=== PATIENT | male | born 1960 | race African-American/Black ===

== ENCOUNTER 2025-06-29 15:27 | Emergency (ER) | payer SELFPAY ==
[2025-06-29 15:28] VITALS: BP 135/89
[2025-06-29 15:30] VITALS: BP 135/89
[2025-06-29 15:38] VITALS: BMI 31.4
[2025-06-29 16:00] VITALS: BP 132/88
[2025-06-29 16:07] LABS: Hematocrit 45.9 % (39.0-52.0); Hemoglobin 14.9 g/dL (13.0-18.0); Mean Corp Hgb Conc. 32.5 g/dL (33.0-37.0); Mean Corpuscular Volume 85.6 fL (80.0-94.0); Nucleated Red Blood Cells % 0 % (-); Platelet Count 263 10^3/uL (130-400); Red Cell Dist. Width 13.8 % (11.5-14.5)
--- NOTE | 2025-06-29 16:09 | ED.GENMED ---
History of Present Illness
<Cameron Grayson MD, Resident - Last Filed: 06/29/25 18:32>
General
Chief Complaint: Abnormal Lab Value
Source: patient
Time Seen by Provider: 06/29/25 15:36
History of Present Illness
History of Present Illness:
Patient is a 64-year-old male who presents to the emergency department from the [facility] after an unusual EKG reading. He was in his normal state of health when this unusual EKG finding was obtained. The patient has no complaints at the present time and
does not believe that he has anything wrong with him presently. I called over to [facility] for further information and they stated that he was sent to the ED after his physial eval had an abnormal EKG during their intake
to the facility he was denied based on these findings and sent to [facility]'s ED. He denies shortness of breath, dizziness, or syncope. He denies palpitations, slow heart rate, or fatigue. He denies feeling fatigued or syncope when rising from a
seated to standing position. He can eat and drink normally and has no nausea, vomiting, or diarrhea. He is unsure why he is here and is curious as to why people think that he may be unwell.
Past History
<Cameron Grayson MD, Resident - Last Filed: 06/29/25 18:32>
Past History
ED Past Medical History: HTN
ED Past Surgical History: Other ( Herniotomy)
Patient has exhibited threatening behavior?: No
Social History
Tobacco: Former smoker ( smoked for 10 years)
Alcohol: None
Drug: None
Personal:
Living: with family
Family History
Family History: Other ( his mother had pericardial effusion)
Review of Systems
<Cameron Grayson MD, Resident - Last Filed: 06/29/25 18:32>
Review of Systems
Constitutional: Reports no symptoms
EENT: Reports no symptoms
Respiratory: Reports no symptoms
Cardiac: Reports no symptoms
ABD/GI: Reports no symptoms
: Reports no symptoms
Musculoskeletal: Reports no symptoms
Skin: Reports no symptoms
Neurological: Reports no symptoms
Endocrine: Reports no symptoms
Hematologic/Lymphatic: Reports no symptoms
Psychiatric: Reports no symptoms
Phy Exam
<Cameron Grayson MD, Resident - Last Filed: 06/29/25 18:32>
General Physical Exam
General Presentation: well appearing and no apparent distress
General age: appears stated age
General Skin: warm and dry
General Habitus: normal and obese
General Mental: alert
General Hydration: appears well hydrated
Cardiovascular Exam
Cardiovascular Exam: no edema, no gallop, no JVD, no murmur, normal peripheral pulses and bradycardia
Pulmonary Exam
Pulmonary Exam: lungs clear, no respiratory distress, no rales, chest non tender, no crackles, no rhonchi, no stridor, no wheezing and no cough
Psychiatric Exam
Psychiatric Exam: normal mood/affect
Course
<Cameron Grayson MD, Resident - Last Filed: 06/29/25 18:32>
Orders/Labs/Results
Orders:
Orders
06/29/25 15:28
Electrocardiogram (*1) Urgent
Reason for Study: Hypertension, Benign
EKG- Treatment ONCE
06/29/25 15:40
Basic Metabolic Panel Urgent
Complete Blood Count/With Diff Urgent
TSH Reflex To Free T4 Urgent
Comment: ADD ON
06/29/25 16:21
Troponin I Urgent
06/29/25 16:43
Add On- LAB Urgent
Tests Added?: TSH w/ reflex to T4
06/29/25 18:31
Discharge Patient As Directed
Abnormal Lab Results
06/29/25
15:40
MCHC 32.5 L g/dL
(33.0-37.0)
Absolute Lymphs (auto) 3.7 H 10^3/uL
(1.2-3.4)
Absolute Monos (auto) 0.8 H 10^3/uL
(0.1-0.6)
BUN 25 H mg/dl
(9-20)
Creatinine 1.5 H mg/dL
(0.7-1.3)
06/29/25 15:40
06/29/25 15:40
Vital Signs
Initial and Last Documented VS:
Initial Vital Signs
Temp Pulse Resp BP Pulse Ox
98.1 F 58 18 135/89 97
06/29/25 15:28 06/29/25 15:28 06/29/25 15:28 06/29/25 15:28 06/29/25 15:28
Last Documented Vital Signs
Temp Pulse Resp BP Pulse Ox
98.1 F 54 20 141/94 97
06/29/25 15:28 06/29/25 17:30 06/29/25 17:30 06/29/25 17:00 06/29/25 16:10
<Bijan Rojo MD - Last Filed: 06/29/25 18:25>
Orders/Labs/Results
Orders:
Orders
06/29/25 15:28
Electrocardiogram (*1) Urgent
Reason for Study: Hypertension, Benign
EKG- Treatment ONCE
06/29/25 15:40
Basic Metabolic Panel Urgent
Complete Blood Count/With Diff Urgent
TSH Reflex To Free T4 Urgent
Comment: ADD ON
06/29/25 16:21
Troponin I Urgent
06/29/25 16:43
Add On- LAB Urgent
Tests Added?: TSH w/ reflex to T4
06/29/25 18:31
Discharge Patient As Directed
Abnormal Lab Results
06/29/25
15:40
MCHC 32.5 L g/dL
(33.0-37.0)
Absolute Lymphs (auto) 3.7 H 10^3/uL
(1.2-3.4)
Absolute Monos (auto) 0.8 H 10^3/uL
(0.1-0.6)
BUN 25 H mg/dl
(9-20)
Creatinine 1.5 H mg/dL
(0.7-1.3)
06/29/25 15:40
06/29/25 15:40
Vital Signs
Initial and Last Documented VS:
Initial Vital Signs
Temp Pulse Resp BP Pulse Ox
98.1 F 58 18 135/89 97
06/29/25 15:28 06/29/25 15:28 06/29/25 15:28 06/29/25 15:28 06/29/25 15:28
Last Documented Vital Signs
Temp Pulse Resp BP Pulse Ox
98.1 F 54 20 141/94 97
06/29/25 15:28 06/29/25 17:30 06/29/25 17:30 06/29/25 17:00 06/29/25 16:10
<Cameron Grayson MD, Resident - Last Filed: 06/29/25 18:32>
*Pulse Oximetry
SaO2: 97
Oxygen Mode of Delivery: Room air
Patient hypoxic: no
*Critical Care Note
Total Time (30-74mins, 75-104mins- exclusive of procedures): 60
<Cameron Grayson MD, Resident - Last Filed: 06/29/25 18:32>
Update Note
Update Note:
Problem List:
Asymptomatic bradycardia
abnormal EKG in outpatient setting
Plan:
CBC and CMP
EKG
magnesium level
TSH with reflex to T4
troponins
Differential Diagnoses:
previous MO
physiologic sinus bradycardia
hypothyroidism
sick sinus syndrome
first-degree/Mobitz 1 AV block
severe hyperkalemia
Radiology: not applicable
EKG:
unusual P axis, possible ectopic atrial bradycardia
minimal voltage criteria for LVH
septal infarct, age undetermined
T wave abnormality�consider lateral ischemia
abnormal EKG
Labs:
Updates:
patient presents with no signs or symptoms of acute coronary syndrome
CBC unremarkable
BMP has BUN of 25 and a creatinine of 1.5 with an eGFR of 51.67 - patient will require outpatient trending in order to determine/rule out CKD status
EKG taken shows an unusual P axis with possible ectopic atrial bradycardia. There is minimal voltage criteria for LVH and likely septal infarct with undetermined age. There was a T wave abnormality along the lateral leads suggesting lateral
ischemia. Based on these findings the patient should be followed with cardiology in the outpatient setting.
first troponin is 0.031
Two-dimensional and M-mode echocardiogram with Doppler and color Doppler showed normal sinus rhythm with mild concentric left ventricular hypertrophy with an ejection fraction of 50 to 55%.
Based on these findings the patient is currently medically stable but should follow-up with cardiology in the outpatient setting. Patient has been lined up for referral and follow-up with cardiology on discharge.
Patient would like to be discharged. There are no barriers that would impede the patient for being safely discharged at the present time.
Patient should follow-up with his primary care provider within 1 week after discharge and patient should follow-up with cardiology.
ED Attending Note
<Cameron Grayson MD, Resident - Last Filed: 06/29/25 18:32>
-
Portions of this chart may have been created with voice recognition software.� Occasional wrong word or��sound alike� substitutions may have occurred due to the inherent limitations of voice recognition software.
<Bijan Rojo MD - Last Filed: 06/29/25 18:25>
ED Attending Note
Patient seen and examined by attending physician: Yes
I performed a history and physical exam of patient and discussed management with resident, I reviewed resident's note and agree with documented findings and plan of care.: Yes
ED Attending Note:
I have seen and evaluated the patient with a [id number] encounter. I have spoken to the resident and involved in the medical history, the physical exam, medical decision making.
Evaluation and management service: agree unless noted differently below.
Results interpretation: agree unless noted differently below.
Focused HPI: 64-year-old male with history of hypertension hyperlipidemia presents to the ER from [facility] for evaluation of an abnormal EKG. Patient reports 'I do need to know I was coming to the hospital.' He says that
he has no complaints and that physically he has been feeling well 'I always feel fine.' He specifically denies any chest pain. He denies any issues with exertion or limitation in his activities. He denies any shortness of breath. He denies any
nausea, vomiting, diaphoresis. He denies any swelling or pain in his legs. When asked about any history of heart issues he says that he thinks he 'might have' had a minor heart attack a few months ago and was seen at [facility]. He
denies any history of stents or any other cardiac procedures.
Physical exam: Awake and alert not in any distress. Vital signs here are all within normal limits. He has no cardiac rubs gallops or murmurs. Lungs clear to auscultation bilaterally. He has no JVD. No edema in the legs. Good pulses throughout.
Medical Decision Makin-year-old male presents to the ER for evaluation of abnormal EKG detected on routine screening at [facility] today. He has no acute complaints. He has no signs or symptoms to suggest acute MO.
His EKG today is abnormal with lateral T wave inversions. No priors available for comparison. Routine screening labs sent off including a CBC which was unremarkable, CMP which showed creatinine of 1.5 without prior baseline comparison available.
Will send a troponin for completeness although he has nothing to suggest that he has an acute coronary syndrome at this point in time. He will ultimately need cardiology follow-up for his abnormal EKG. Will try to obtain records from [facility]
for prior comparisons.
Troponin negative here. He has no symptoms of an acute coronary syndrome, no indication for repeat troponin. Patient remains asymptomatic. I was able to obtain the old EKG from [facility] in February 2025 similar with the same
lateral T wave abnormalities seen today. He also had an echocardiogram at that time showed EF of 50 to 55%, normal LV size. At this point patient can be discharged back to detention. Advised detention pharmacy as well as patient that he will need
outpatient cardiology referral. All questions answered.
Discharge Plan
Departure
Patient Disposition: Home (Routine Discharge)
Date of Disposition: 06/29/25
Time of Disposition: 18:25
Patient with high blood pressure during this ER visit?: No
Discharge Problem:
Abnormal EKG
Instructions: ECG and stress test
Prescriptions:
No Action
aspirin [Adult Low Dose Aspirin] 81 mg Tablet
81 mg PO QDAY
atorvastatin 40 mg Tablet
40 mg PO HS
amlodipine 10 mg Tablet
10 mg PO DAILY
hydralazine 50 mg Tablet
50 mg PO TID
Referrals:
Arcelia Brooks MD [Active, Cardiology] - Call in 1-3 days for appt
Referral Note: Cardiology follow up regarding abnormal EKG and high blood pressure.
Activity Restrictions/Additional Instructions:
Thank you for visiting the Emergency Department at [facility].
1. Please schedule a follow up appointment as directed. Call first thing tomorrow morning to make an appointment.
2. If indicated, please take your medications as instructed and indicated on discharge paperwork.
3. If any of your symptoms do not improve, or persist, or become more severe within 6-12 hours, please return to the emergency department for further care.
4. Please return to the emergency department if you develop a headache, neck pain/stiffness, fever greater than 100.4F, chest pain, shortness of breath, persistent nausea, vomiting, slurred speech, difficulty walking, numbness/tingling, weakness,
signs of infection or any other symptoms that are worrisome to you.
Please call [phone] if you have any questions.
Interventions
Interventions:
*Risk Screen - Suicide Last Done: 06/29/25 15:31
*General Assessment Last Done: 06/29/25 15:31
*Neglect/Abuse Screening Last Done: 06/29/25 15:31
*ED- Fall Risk Assessment Last Done: 06/29/25 15:31
*ED COVID-19 Vaccine History Last Done: 06/29/25 15:31
*Nursing Disposition Last Done: 06/29/25 18:30
Discharge Date and Time
Discharge Date/Time: 06/29/25 18:31
Print Language: SINHALA
[2025-06-29 16:26] LABS: Blood Urea Nitrogen 25 mg/dl (9-20); Calcium 9.5 mg/dl (8.4-10.2); Carbon Dioxide 26 mmol/L (22-30); Chloride 104 mmol/L (98-107); Estimated Creatinine Clearance 62 ml/min; Glucose 78 mg/dl (70-99); Sodium 137 mmol/L (135-145); eGFR 51.67
[2025-06-29 16:55] LABS: Troponin I 0.031 ng/ml
[2025-06-29 17:00] VITALS: BP 141/94
--- NOTE | 2025-06-29 23:29 | ED.GENMED ---
History of Present Illness
General
Chief Complaint: Abnormal Lab Value
Time Seen by Provider: 06/29/25 15:36
Past History
Past History
ED Past Medical History: HTN
ED Past Surgical History: Other ( Herniotomy)
Patient has exhibited threatening behavior?: No
Social History
Tobacco: Former smoker ( smoked for 10 years)
Alcohol: None
Drug: None
Personal:
Living: with family
Family History
Family History: Other ( his mother had pericardial effusion)
Course
Orders/Labs/Results
Orders:
Orders
06/29/25 15:28
Electrocardiogram (*1) Urgent
Reason for Study: Hypertension, Benign
EKG- Treatment ONCE
06/29/25 15:40
Basic Metabolic Panel Urgent
Complete Blood Count/With Diff Urgent
TSH Reflex To Free T4 Urgent
Comment: ADD ON
06/29/25 16:21
Troponin I Urgent
06/29/25 16:43
Add On- LAB Urgent
Tests Added?: TSH w/ reflex to T4
06/29/25 18:31
Discharge Patient As Directed
Abnormal Lab Results
06/29/25
15:40
MCHC 32.5 L g/dL
(33.0-37.0)
Absolute Lymphs (auto) 3.7 H 10^3/uL
(1.2-3.4)
Absolute Monos (auto) 0.8 H 10^3/uL
(0.1-0.6)
BUN 25 H mg/dl
(9-20)
Creatinine 1.5 H mg/dL
(0.7-1.3)
06/29/25 15:40
06/29/25 15:40
Vital Signs
Initial and Last Documented VS:
Initial Vital Signs
Temp Pulse Resp BP Pulse Ox
98.1 F 58 18 135/89 97
06/29/25 15:28 06/29/25 15:28 06/29/25 15:28 06/29/25 15:28 06/29/25 15:28
Last Documented Vital Signs
Temp Pulse Resp BP Pulse Ox
98.1 F 54 20 141/94 97
06/29/25 15:28 06/29/25 17:30 06/29/25 17:30 06/29/25 17:00 06/29/25 16:10
*Pulse Oximetry
SaO2: 97
Oxygen Mode of Delivery: Room air
Update Note
Update Note:
Problem List:
Bradycardia
left ventricular hypertrophy
prior myocardial infarct
Plan:
EKG
CBC
BMP
TSH with reflex to free T4
troponin
Differential Diagnoses:
prior myocardial infarct
hyperkalemia
Radiology: not applicable
EKG:
unusual P axis, possible ectopic atrial bradycardia
minimal voltage criteria for left ventricular hypertrophy
septal infarct age undetermined
T wave abnormality, consider lateral ischemia
abnormal ECG with no previous ECGs to compare to.
Labs:
EKG cited above
CBC unremarkable
BMP with a creatinine of 1.5 and an eGFR of 51.67
TSH within normal limit
troponins within normal limit
Updates:
based on presentation, EKG, and lab findings this patient likely has a older myocardial infarction that has been detected on EKG. Patient is hemodynamically stable and presents without any signs or symptoms of Acute coronary syndrome. Patient
is appropriate to be followed up in the outpatient setting.
patient should follow-up with Dr. Brooks from cardiology after discharge.
patient would like to be discharged. Patient is appropriate for discharge at the present time.
ED Attending Note
-
Portions of this chart may have been created with voice recognition software.� Occasional wrong word or��sound alike� substitutions may have occurred due to the inherent limitations of voice recognition software.
Discharge Plan
Departure
Patient Disposition: Home (Routine Discharge)
Date of Disposition: 06/29/25
Time of Disposition: 18:25
Patient with high blood pressure during this ER visit?: No
Discharge Problem:
Abnormal EKG
Instructions: ECG and stress test
Prescriptions:
No Action
aspirin [Adult Low Dose Aspirin] 81 mg Tablet
81 mg PO QDAY
atorvastatin 40 mg Tablet
40 mg PO HS
amlodipine 10 mg Tablet
10 mg PO DAILY
hydralazine 50 mg Tablet
50 mg PO TID
Referrals:
Arcelia Brooks MD [Active, Cardiology] - Call in 1-3 days for appt
Referral Note: Cardiology follow up regarding abnormal EKG and high blood pressure.
Activity Restrictions/Additional Instructions:
Thank you for visiting the Emergency Department at [facility].
1. Please schedule a follow up appointment as directed. Call first thing tomorrow morning to make an appointment.
2. If indicated, please take your medications as instructed and indicated on discharge paperwork.
3. If any of your symptoms do not improve, or persist, or become more severe within 6-12 hours, please return to the emergency department for further care.
4. Please return to the emergency department if you develop a headache, neck pain/stiffness, fever greater than 100.4F, chest pain, shortness of breath, persistent nausea, vomiting, slurred speech, difficulty walking, numbness/tingling, weakness,
signs of infection or any other symptoms that are worrisome to you.
Please call [phone] if you have any questions.
Interventions
Interventions:
*Risk Screen - Suicide Last Done: 06/29/25 15:31
*General Assessment Last Done: 06/29/25 15:31
*Neglect/Abuse Screening Last Done: 06/29/25 15:31
*ED- Fall Risk Assessment Last Done: 06/29/25 15:31
*ED COVID-19 Vaccine History Last Done: 06/29/25 15:31
*Nursing Disposition Last Done: 06/29/25 18:30
Discharge Date and Time
Discharge Date/Time: 06/29/25 18:31
Print Language: ISRAELI
== END 2025-06-29 18:31 ==
LOC: EMR 15:27
PROVIDERS: EMERGENCY PHYSICIAN Emergency Medicine
DX: R94.31 Abnormal electrocardiogram [ECG] [EKG] (principal); I10 Essential (primary) hypertension; Z87.891 Personal history of nicotine dependence
CPT/HCPCS: 99284; 80048; 84443; 84484; 85025; 93005